=== PATIENT | female | born 1930 | race Two or more races ===

== ENCOUNTER 2017-07-22 08:52 | Emergency (ER) | payer OTHER, MEDICAID ==
[~2017-07-22] VITALS: Ht 154.9 cm; Wt 54.4 kg
[~2017-07-22 08:52] MED LIST: ASPI-498 OR; ATOR40TA52 PO; CLOP75TA41 PO; CYAN500T2 PO; DONE5TAB31 PO; FAM20T PO; FLU05NSL; FLUO-126 PO; LEVO75TA6 PO; LORA-622 PO
[2017-07-22 09:38] LABS: Basophils # (auto) 0 uL; Basophils % (auto) 0.9 % (0.0-2.0); Eosinophils # (auto) 0.2 uL; Eosinophils % (auto) 4.7 % (0.0-7.0); Hematocrit 38.1 % (36.0-46.0); Hemoglobin 12.4 g/dL (12.2-16.2); Mean Corpuscular Hemoglobin 31.3 pg (28.0-32.0); Mean Corpuscular Hgb Conc. 32.6 g/dL (32.0-36.0); Mean Corpuscular Volume 95.9 fL (80.0-100.0); Monocytes # (auto) 0.2 uL; Monocytes % (auto) 5.7 % (0.0-12.0); Neutrophils # (auto) 2.2 uL; Neutrophils % (auto) 60.7 % (37.0-80.0); Nucleated Red Blood Cells % 0.1 %; Platelet Count (auto) 201 10^3/uL (140-450); Red Blood Cells 3.98 10^6/uL (4.0-5.20); Red Cell Distribution Width 14.3 % (11.8-14.3); White Blood Cell 3.6 10^3/uL (4.4-10.8)
[2017-07-22 09:50] LABS: INR 0.99 (0.9-1.15); Partial Thromboplastin Time 20.3 sec (22.64-33.71); Prothrombin Time 10.8 sec (9.37-12.3)
[2017-07-22 09:59] LABS: Alanine Aminotransferase 15 U/L (13-56); Albumin 3.2 g/dL (3.4-5.0); Anion Gap 7 (5-15); Aspartate Aminotransferase 10 U/L (15-37); BUN/Creatinine Ratio 23.4; Blood Urea Nitrogen 22 mg/dL (7-18); Calcium 8.4 mg/dL (8.5-10.1); Carbon Dioxide 25 mmol/L (21-32); Chloride 113 mmol/L (98-107); GFR African American 73 mL/min; GFR Non-African American 60 mL/min; Glucose 100 mg/dL (74-106); Potassium 3.8 mmol/L (3.5-5.1); Sodium 145 mmol/L (136-145)
[2017-07-22] MEDS ORDERED: SODIUM CHLORIDE 0.9% 1,000 ML IV ONE (10:03)
[2017-07-22 10:04] LABS: Alkaline Phosphatase 37 U/L (45-117); Bilirubin, Total 0.6 mg/dL (0.2-1.0); Total Protein 6.3 g/dL (6.4-8.2)
[2017-07-22 11:16] VITALS: BP 122/61
== END 2017-07-22 13:12 | disposition home or self-care (01) ==
LOC: EDUNIT# 08:52 → EDBD 08:52 → ER 08:52
DX: S30.0XXA Contusion of lower back and pelvis, initial encounter (principal); M47.816 Spondylosis without myelopathy or radiculopathy, lumbar region; F03.90 Unspecified dementia, unspecified severity, without behavioral disturbance, psychotic disturbance, mood disturbance, and anxiety; E44.1 Mild protein-calorie malnutrition; R55 Syncope and collapse; Z68.22 Body mass index [BMI] 22.0-22.9, adult; K21.9 Gastro-esophageal reflux disease without esophagitis; E78.5 Hyperlipidemia, unspecified; I10 Essential (primary) hypertension; E07.9 Disorder of thyroid, unspecified; Z90.49 Acquired absence of other specified parts of digestive tract; Z90.710 Acquired absence of both cervix and uterus; Z86.73 Personal history of transient ischemic attack (TIA), and cerebral infarction without residual deficits; X58.XXXA Exposure to other specified factors, initial encounter; Y93.89 Activity, other specified; Y92.89 Other specified places as the place of occurrence of the external cause; Y99.8 Other external cause status
CPT/HCPCS: 36415; 70450; 71045; 72100; 72220; 80053; 83735; 84443; 84484; 85025; 85610; 85730; 93005; 94761; 99285; J7030; 81002

== ENCOUNTER 2019-12-16 10:21 | Emergency (ER) | payer OTHER, MEDICAID ==
[~2019-12-16] VITALS: Ht 157.5 cm; Wt 63.5 kg
[~2019-12-16 10:21] MED LIST changes: +ATOR20TA50 PO; -ATOR40TA52 PO; -CYAN500T2 PO; +CYAN500T3 PO; -DONE5TAB31 PO; -FAM20T PO; +QUET25TA37 PO
[2019-12-16] MEDS ORDERED: SODIUM CHLORIDE 0.9% 500 ML IVB ONE (10:30)
[2019-12-16 11:45] LABS: Basophils # (auto) 0 10 ^3/uL (0-0.2); Basophils % (auto) 0.3 % (0.0-2.0); Eosinophils # (auto) 0.2 10 ^3/uL (0-0.8); Eosinophils % (auto) 3.8 % (0.0-7.0); Hematocrit 34.7 % (36.0-46.0); Hemoglobin 11.6 g/dL (12.2-16.2); Lymphocytes # (auto) 1.3 10 ^3/uL (0.4-5.4); Lymphocytes % (auto) 32.4 % (10.0-50.0); Mean Corpuscular Hemoglobin 32.3 pg (28.0-32.0); Mean Corpuscular Hgb Conc. 33.3 g/dL (32.0-36.0); Mean Corpuscular Volume 96.9 fL (80.0-100.0); Monocytes # (auto) 0.3 10 ^3/uL (0-1.3); Monocytes % (auto) 7.3 % (0.0-12.0); Neutrophils # (auto) 2.3 10 ^3/uL (1.6-8.6); Neutrophils % (auto) 56.2 % (37.0-80.0); Nucleated Red Blood Cells % 0.1 %; Platelet Count (auto) 220 10^3/uL (140-450); Red Blood Cells 3.58 10^6/uL (4.0-5.20); Red Cell Distribution Width 14.6 % (11.8-14.3); White Blood Cell 4.2 10^3/uL (4.4-10.8)
[2019-12-16 11:52] LABS: Urine Bacteria MOD /hpf (None Seen); Urine Blood 2+ /uL (Negative); Urine Mucus FEW (None Seen); Urine Specific Gravity 1.017 (1.001-1.035); Urine WBC 11 /hpf (0 - 5)
[2019-12-16 12:15] LABS: Chloride 111 mmol/L (98-107); Potassium 3.8 mmol/L (3.5-5.1); Sodium 141 mmol/L (136-145)
[2019-12-16 12:24] LABS: CRP High Sensitivity 0.12 mg/dL (< 0.3)
[2019-12-16 12:31] LABS: Alanine Aminotransferase 13 U/L (13-56); Albumin 3.4 g/dL (3.4-5.0); Alkaline Phosphatase 47 U/L (45-117); Anion Gap 5 (5-15); Aspartate Aminotransferase 16 U/L (15-37); BUN/Creatinine Ratio 20.7; Bilirubin, Total 0.5 mg/dL (0.2-1.0); Blood Urea Nitrogen 19 mg/dL (7-18); Calcium 8.2 mg/dL (8.5-10.1); Carbon Dioxide 25 mmol/L (21-32); GFR African American 74 mL/min; GFR Non-African American 61 mL/min; Glucose 91 mg/dL (74-106); Total Protein 6.4 g/dL (6.4-8.2)
[2019-12-16] MEDS ORDERED: LORazepam 2MG/ML-1ML VIAL ONE (14:27)
[2019-12-16] MEDS ORDERED: LORazepam 2MG/ML-1ML VIAL IV ONE (14:30)
[2019-12-16] MEDS ORDERED: cefTRIAXone 1GM/50ML D5W 50 ML IV ONE (15:45)
[2019-12-16 19:06] VITALS: BP 154/83
== END 2019-12-16 14:54 | disposition other institution (70) ==
LOC: EDBD 10:21 → ER 10:21
DX: I12.9 Hypertensive chronic kidney disease with stage 1 through stage 4 chronic kidney disease, or unspecified chronic kidney disease (principal); N18.3 Chronic kidney disease, stage 3 (moderate); E86.0 Dehydration; N39.0 Urinary tract infection, site not specified; K21.9 Gastro-esophageal reflux disease without esophagitis; F41.9 Anxiety disorder, unspecified; Z90.49 Acquired absence of other specified parts of digestive tract; Z90.710 Acquired absence of both cervix and uterus; Z20.828 Contact with and (suspected) exposure to other viral communicable diseases
CPT/HCPCS: 36415; 70450; 71045; 74176; 80053; 81001; 82728; 83605; 83615; 84484; 85025; 86141; 87040; 87426; 93005; 96361; 96365; 96375; 99285; C9803; J0696; J2060; J7030; U0003